=== PATIENT | male | born 1975 | race Caucasian/White ===

== ENCOUNTER 2017-03-27 18:00 | Emergency (ER) | payer OTHER ==
[~2017-03-27] VITALS: Ht 167.6 cm; Wt 104.3 kg
[~2017-03-27 18:00] MED LIST: CIPR500T94 PO; CLOP75TA27 PO; HYDR-971 PO; SIMV10TA3 PO; TIZA4TAB PO
[2017-03-27 18:05] VITALS: BP 137/77
--- NOTE | 2017-03-27 18:32 | PHYS DOC ---
Past Medical History Past Medical History: CVA, High Cholesterol Additional Past Medical Histor: CVA 2008 Past Surgical History: Other Additional Past Surgical Histo: Hernia Alcohol Use: None Drug Use: None Adult General Chief Complaint Chief Complaint: EYE PROBLEMS HPI HPI Patient is a 41 year old male presents to the emergency department stating that he was seen by his primary care physician on was placed on doxycycline for a left upper eyelid infection. Patient states that he had some swelling down into the maxillary sinus area. Patient states he was told by his primary care physician if he was not feeling better on Wednesday that he needed to go the emergency department and be seen. Patient states when he woke up this morning he continued have increased pain along the left maxillary sinus area. He states he's also developed pain behind the left ear. He denies any fever, chills. He does state that he sounds a little sensitivity to light with the left eye. He denies any change in his hearing. Patient is alert and oriented. Shunt denies any nasal drainage or discharge. Review of Systems Review of Systems Constitutional: Denies fever or chills [] Eyes: Denies change in visual acuity, redness, or eye pain [] HENT: Denies nasal congestion or sore throat. C/o left maxillary sinus pain with pain behind the left ear Respiratory: Denies cough or shortness of breath [] Cardiovascular: No additional information not addressed in HPI [] GI: Denies abdominal pain, nausea, vomiting, bloody stools or diarrhea [] : Denies dysuria or hematuria [] Musculoskeletal: Denies back pain or joint pain [] Integument: Denies rash or skin lesions [] Neurologic: Denies headache, focal weakness or sensory changes [] Endocrine: Denies polyuria or polydipsia [] Allergies Allergies Allergies Coded Allergies Type Severity Reaction Last Updated Verified Penicillins Allergy Intermediate Rash 05/21/16 No Physical Exam Physical Exam Constitutional: Well developed, well nourished, no acute distress, non-toxic appearance. [] HENT: Normocephalic, atraumatic, bilateral external ears normal, oropharynx moist, no oral exudates, nose normal. Bilateral TM normal. Patient with left maxillary sinus tenderness, tenderness behind the left ear. Eyes: PERRLA, EOMI, conjunctiva normal, no discharge. Left upper eye lid appear slightly red along the eye lashes, no swelling noted Neck: Normal range of motion, no tenderness, supple, no stridor. [] Cardiovascular:Heart rate regular rhythm, no murmur [] Lungs & Thorax: Bilateral breath sounds clear to auscultation [] Skin: Warm, dry, no erythema, no rash. [] Back: No tenderness Extremities: No tenderness, no cyanosis, no clubbing, ROM intact, no edema. [] Neurologic: Alert and oriented X 3, normal motor function, normal sensory function, no focal deficits noted. [] Psychologic: Affect normal, judgement normal, mood normal. [] Current Patient Data Vital Signs Vital Signs Date Time Temp Pulse Resp B/P (MAP) Pulse Ox O2 Delivery O2 Flow Rate FiO2 03/27/17 18:05 97.9 78 16 98 Room Air 97.9 EKG EKG [] Radiology/Procedures Radiology/Procedures [][facility] [address] [place] [address] IMAGING REPORT Signed PATIENT: BRENDAN ESQUEDA ACCOUNT: [id number] : 1975 LOCATION: ER AGE: 41 SEX: M EXAM STATUS: REG ER ORD. PHYSICIAN: PHIL CHOI APRN REASON: left maxillary sinus pain with pain behind left ear. PROCEDURE: CT MAXILLOFACIAL WO CONTRAST CT MAXILLOFACIAL WO CONTRAST dated 03/27/2017 6:23 PM Indication: left sided sinus pain and pain behind left ear x several days, no priors Comparison: No comparison is available. Technique: CT imaging was performed of the[maxillofacial region], multiplanar reconstruction images submitted. One or more of the following individualized dose reduction techniques were utilized for this examination: 1. Automated exposure control 2. Adjustment of the mA and/or kV according to patient size 3. Use of iterative reconstruction technique Findings: Paranasal sinuses are overall aerated, no air-fluid levels or significant mucosal thickening. Mastoid air cells are aerated. There is mild facet degenerative change visualized of the visualized superior cervical spine. There are several nonspecific nodes in the visualized bilateral neck although not considered significantly enlarged biaxillary imaging criteria, largest right level 2 node up to 1 cm short axis dimension. Brain is poorly evaluated. However there is a large area of likely encephalomalacia centered in the left insula, ex vacuo dilatation of the left lateral ventricle. IMPRESSION: 1. Paranasal sinuses are aerated, no air-fluid levels. 2. Brain is poorly evaluated. However there is a large area of likely encephalomalacia probably from previous infarct centered in the left insula, ex vacuo dilatation of the left lateral ventricle. Electronically signed by: Ayde Razo MD (03/27/2017 6:40 PM) DICTATED and SIGNED BY: AYDE RAZO MD DATE: 03/27/17 1835 CC: PHIL CHOI APRN; ANA REIS MD ~ Course & Med Decision Making Course & Med Decision Making Pertinent Labs and Imaging studies reviewed. (See chart for details) CT scan was negative for any acute findings. Patient will continue with doxycycline and we'll recommend Tylenol or ibuprofen for pain and discomfort. Patient will be discharged home in stable condition since symptoms to return back to emergency department provided. [] Dragon Disclaimer Dragon Disclaimer This electronic medical record was generated, in whole or in part, using a voice recognition dictation system. Departure Departure Impression: Primary Impression: Maxillary pain Additional Impression: Head pain Referrals: ANA REIS MD (PCP) Patient Instructions: Sinusitis Additional Instructions: Your CT scan was negative for any acute findings. Continue your antibiotic as prescribed. Tylenol or ibuprofen for pain and discomfort. Sleep with your head elevated to help with any swelling that you feel that your having. Follow-up to primary care physician on Wednesday. Return back to emergency department signs and symptoms of become worse. Problem Qualifiers PHIL CHOI APRN March 27, 2017 18:32
--- NOTE | 2017-03-27 18:43 | RAD ---
CT MAXILLOFACIAL WO CONTRAST dated 03/27/2017 6:23 PM Indication: left sided sinus pain and pain behind left ear x several days, no priors Comparison: No comparison is available. Technique: CT imaging was performed of the[maxillofacial region], multiplanar reconstruction images submitted. One or more of the following individualized dose reduction techniques were utilized for this examination: 1. Automated exposure control 2. Adjustment of the mA and/or kV according to patient size 3. Use of iterative reconstruction technique Findings: Paranasal sinuses are overall aerated, no air-fluid levels or significant mucosal thickening. Mastoid air cells are aerated. There is mild facet degenerative change visualized of the visualized superior cervical spine. There are several nonspecific nodes in the visualized bilateral neck although not considered significantly enlarged biaxillary imaging criteria, largest right level 2 node up to 1 cm short axis dimension. Brain is poorly evaluated. However there is a large area of likely encephalomalacia centered in the left insula, ex vacuo dilatation of the left lateral ventricle. IMPRESSION: 1. Paranasal sinuses are aerated, no air-fluid levels. 2. Brain is poorly evaluated. However there is a large area of likely encephalomalacia probably from previous infarct centered in the left insula, ex vacuo dilatation of the left lateral ventricle. Electronically signed by: Russell Davis MD (03/27/2017 6:40 PM)
== END 2017-03-27 19:13 | disposition home or self-care (01) ==
LOC: ER 18:00
DX: R68.84 Jaw pain (principal); R51 Headache; E78.00 Pure hypercholesterolemia, unspecified; Z86.73 Personal history of transient ischemic attack (TIA), and cerebral infarction without residual deficits; Z88.0 Allergy status to penicillin
CPT/HCPCS: 70486; 99284-25

== ENCOUNTER 2017-04-14 16:50 | Observation (INO) | payer OTHER ==
[~2017-04-14] VITALS: Ht 170.2 cm; Wt 104.8 kg
[~2017-04-14 16:50] MED LIST changes: -CLOP75TA27 PO; +CLOP75TA57 PO
--- NOTE | 2017-04-14 17:33 | RAD ---
CT head without intravenous contrast History: Right-sided numbness and weakness, CVA, code stroke. Comparison: CT head December 27, 2008. Technique: Noncontrast CT of the head was performed from the skull base through the vertex with 5 mm collimation. Exposure: One or more of the following individualized dose reduction techniques were utilized for this examination: 1. Automated exposure control 2. Adjustment of the mA and/or kV according to patient size 3. Use of iterative reconstruction technique Findings: There is mild enlargement of the left lateral ventricle secondary to the volume loss of the previous left insular and left frontal stroke. The ventricles are appropriate in size, shape, and location for the patient's age. No obvious intracranial mass, mass-effect, midline shift, hemorrhage or obvious acute infarction is identified. Basilar cisterns are patent. Bone windows demonstrate no acute calvarial abnormality. The visualized paranasal sinuses appear clear. Impression: 1. No acute intracranial process. Please note that CT can be relatively insensitive to acute ischemic infarction for up to 24 hours after symptom onset. 2. Small-moderate old left insular and frontal stroke. 3. Results discussed with emergency department staff, Dr. Harris, at 1730 hours. Electronically signed by: Wade Valdez MD (04/14/2017 5:30 PM)
[2017-04-14 17:50] LABS: BASO % 1 % (0-3); EOS % 0 % (0-3); HEMATOCRIT 43.8 % (39.0-53.0); HEMOGLOBIN 14.9 g/dL (13.0-17.5); LYMPH # 0.5 x10^3/uL (1.0-4.8); LYMPH % 8 % (24-48); MEAN CORPUSCULAR HEMOGLOBIN 33 pg (25-35); MEAN CORPUSCULAR HGB CONC 34 g/dL (31-37); MEAN CORPUSCULAR VOLUME 96 fL (79-100); MONO % 1 % (0-9); NEUT % 91 % (31-73); PLATELET COUNT 180 x10^3/uL (140-400); RED BLOOD COUNT 4.58 x10^6/uL (4.30-5.70); RED CELL DISTRIBUTION WIDTH 13.8 % (11.5-14.5); WHITE BLOOD COUNT 6.8 x10^3/uL (4.0-11.0)
[2017-04-14 17:59] LABS: INR 1.1 (0.8-1.1); PROTHROMBIN TIME PATIENT 13.6 SEC (11.7-14.0)
[2017-04-14] MEDS ORDERED: fentaNYL PF VIAL 100 MCG/2 ML VIAL IV ONE (18:00)
[2017-04-14] MEDS ORDERED: METOCLOPRAMIDE HCL 10 MG/2 ML VIAL. IV ONE (18:00)
[2017-04-14] MEDS ORDERED: ASPIRIN CHEWABLE 81 MG TABLET. PO ONE (18:00)
[2017-04-14 18:05] LABS: CREATININE 1.1 mg/dL (0.7-1.3); GFR 73.4; POTASSIUM 4.2 mmol/L (3.5-5.1)
[2017-04-14 18:09] LABS: PLT ESTIMATE ADEQUATE (ADEQUATE)
[2017-04-14 18:11] LABS: ALBUMIN 3.7 g/dL (3.4-5.0); TOTAL BILIRUBIN 0.2 mg/dL (0.2-1.0); TOTAL PROTEIN 7.4 g/dL (6.4-8.2)
[2017-04-14] MEDS ORDERED: IOHEXOL 300 MG/ML 75 ML VIAL IV ONE (18:30)
[2017-04-14] MEDS ORDERED: CONTRAST GIVEN MC PRN (18:30)
[2017-04-14] MEDS ORDERED: CETI10TA16 PO (18:31)
[2017-04-14] MEDS ORDERED: SIMV40TA3 PO (18:31)
[2017-04-14] MEDS ORDERED: LEVO500T8 PO (18:31)
[2017-04-14] MEDS ORDERED: PRED20TA PO (18:31)
--- NOTE | 2017-04-14 18:54 | RAD ---
MRI Brain without IV contrast. History: Evaluate for CVA. Severe left-sided headache and right-sided weakness for one day. History of old stroke. Comparison: CT head earlier 04/14/2017. Technique: Routine multiplanar multisequence MRI of the brain was performed without intravenous administration. Findings: There is mild enlargement of the left lateral ventricle secondary to the volume loss of the previous left insular and left frontal stroke. The ventricles are appropriate in size, shape, and location for the patient's age. No intracranial mass, mass-effect, midline shift, hemorrhage or acute ischemic infarction is identified. Basilar cisterns are patent. Major intracranial vascular flow voids appear intact. Visualized paranasal sinuses appear clear. Impression: 1. No acute intracranial process. 2. Old left insular and frontal infarction. Electronically signed by: Wade Valdez MD (04/14/2017 6:50 PM)
--- NOTE | 2017-04-14 19:05 | ED.ADGEN ---
Past Medical History Past Medical History: CVA, High Cholesterol Additional Past Medical Histor: CVA 2009 Past Surgical History: Other Additional Past Surgical Histo: Hernia Alcohol Use: Rarely Drug Use: None Adult General Chief Complaint Chief Complaint: NEURO SYMPTOMS/DEFICITS HPI HPI Patient is a 41 year old male with remote CVA currently on Plavix who presents with intermittent headaches 2 weeks, left facial pain, and right facial numbness, right upper extremity weakness of breath onset wire prior to ED arrival. Patient denies acute headache. Denies blurred vision, change in vision , impaired speech, drooling, difficulty swallowing, lower extremity weakness and ataxia. She currently on antibiotics for a sinus infection started by PCP yesterday with medications. No other acute symptoms or complaints. Review of Systems Review of Systems ROS as per HPI. Current Medications Current Medications Current Medications Medications (Trade) Dose Ordered Sig/Temo Start Time Stop Time Status Last Admin Dose Admin Aspirin (Children'S Aspirin) 162 mg 1X ONCE 04/14/17 18:00 04/14/17 18:01 DC 04/14/17 18:02 162 MG Fentanyl Citrate (Fentanyl 2ml Vial) 50 mcg 1X ONCE 04/14/17 18:00 04/14/17 18:01 DC Info (Do NOT chart on this entry -- for MONITORING) 1 each PRN DAILY PRN 04/14/17 18:30 04/16/17 18:29 Iohexol (Omnipaque 300 Mg/ml) 75 ml 1X ONCE 04/14/17 18:30 04/14/17 18:31 DC 04/14/17 18:43 75 ML Metoclopramide HCl (Reglan) 10 mg 1X ONCE 04/14/17 18:00 04/14/17 18:01 DC Allergies Allergies Allergies Coded Allergies Type Severity Reaction Last Updated Verified Penicillins Allergy Intermediate Rash 05/21/16 No Physical Exam Physical Exam Constitutional: Well developed, well nourished, no acute distress, non-toxic appearance. HENT: Normocephalic, atraumatic, left maxillary pain/sinus TTP, bilateral external ears normal, oropharynx moist, no oral exudates, nose normal. Eyes: PERRLA, EOMI, conjunctiva normal, no discharge. Neck: Normal range of motion, no tenderness. Cardiovascular:Heart rate regular rhythm, no murmur. Lungs & Thorax: Bilateral breath sounds clear to auscultation. Abdomen: Bowel sounds normal, soft, no tenderness. Skin: Warm. Extremities: No tenderness, no cyanosis, no clubbing, ROM intact, no edema. Neurologic: Alert and oriented X 3, right facial, partial numbness, radial nerves II through. Otherwise intact, normal motor function, normal sensory function, no focal deficits noted. NIH stroke score of 1. Psychologic: Affect normal, judgement normal, mood normal. Current Patient Data Vital Signs Vital Signs Date Time Temp Pulse Resp B/P (MAP) Pulse Ox O2 Delivery O2 Flow Rate FiO2 04/14/17 17:56 66 24 122/79 (93) 95 Room Air 04/14/17 17:10 98.1 98.1 Lab Values Laboratory Tests Test 04/14/17 17:15 04/14/17 17:39 Glucose (Fingerstick) 127 mg/dL (70-99) H White Blood Count 6.8 x10^3/uL (4.0-11.0) Red Blood Count 4.58 x10^6/uL (4.30-5.70) Hemoglobin 14.9 g/dL (13.0-17.5) Hematocrit 43.8 % (39.0-53.0) Mean Corpuscular Volume 96 fL (79-100) Mean Corpuscular Hemoglobin 33 pg (25-35) Mean Corpuscular Hemoglobin Concent 34 g/dL (31-37) Red Cell Distribution Width 13.8 % (11.5-14.5) Platelet Count 180 x10^3/uL (140-400) Neutrophils (%) (Auto) 91 % (31-73) H Lymphocytes (%) (Auto) 8 % (24-48) L Monocytes (%) (Auto) 1 % (0-9) Eosinophils (%) (Auto) 0 % (0-3) Basophils (%) (Auto) 1 % (0-3) Neutrophils # (Auto) 6.2 x10^3uL (1.8-7.7) Lymphocytes # (Auto) 0.5 x10^3/uL (1.0-4.8) L Monocytes # (Auto) 0.0 x10^3/uL (0.0-1.1) Eosinophils # (Auto) 0.0 x10^3/uL (0.0-0.7) Basophils # (Auto) 0.0 x10^3/uL (0.0-0.2) Segmented Neutrophils % 91 % (35-66) H Lymphocytes % 9 % (24-48) L Platelet Estimate Adequate (ADEQUATE) Prothrombin Time 13.6 SEC (11.7-14.0) Prothrombin Time INR 1.1 (0.8-1.1) PTT 29 SEC (24-38) Sodium Level 137 mmol/L (136-145) Potassium Level 4.2 mmol/L (3.5-5.1) Chloride Level 103 mmol/L (98-107) Carbon Dioxide Level 30 mmol/L (21-32) Anion Gap 4 (6-14) L Blood Urea Nitrogen 13 mg/dL (8-26) Creatinine 1.1 mg/dL (0.7-1.3) Estimated GFR (Cockcroft-Gault) 73.4 BUN/Creatinine Ratio 12 (6-20) Glucose Level 132 mg/dL (70-99) H Calcium Level 9.0 mg/dL (8.5-10.1) Total Bilirubin 0.2 mg/dL (0.2-1.0) Aspartate Amino Transferase (AST) 21 U/L (15-37) Alanine Aminotransferase (ALT) 27 U/L (16-63) Alkaline Phosphatase 71 U/L (46-116) Total Protein 7.4 g/dL (6.4-8.2) Albumin 3.7 g/dL (3.4-5.0) Albumin/Globulin Ratio 1.0 (1.0-1.7) Laboratory Tests 04/14/17 17:39 Laboratory Tests 04/14/17 17:39 EKG EKG [EKG:] Radiology/Procedures Radiology/Procedures [CT head: No acute intracranial process per radiology report. MRI brain: No acute intracranial process per radiology report. CTA head/neck: NAD per radiology report] Course & Med Decision Making Course & Med Decision Making Pertinent Labs and Imaging studies reviewed. (See chart for details) [Patient with NIH stroke score of 1. Initial symptoms, gradually improved. CT head nonacute, CT angiogram of head and neck, MRI brain nonacute. Evidence of old infarct present. Patient currently on Plavix it is compliant with treatment. Aspirin given. Dr. Collins and Dr. Lane to [facility]. ] Dragon Disclaimer Dragon Disclaimer This electronic medical record was generated, in whole or in part, using a voice recognition dictation system. VONNIE MATA DO Apr 14, 2017 19:05
--- NOTE | 2017-04-14 19:28 | RAD ---
PQRS Compliance Statement: One or more of the following individualized dose reduction techniques were utilized for this examination: 1. Automated exposure control 2. Adjustment of the mA and/or kV according to patient size 3. Use of iterative reconstruction technique CT ANGIOGRAM HEAD AND NECK Clinical Indication: Right-sided numbness. History of CVA 9 years ago. Technique: Axial CT imaging of the head without contrast was initially performed. Axial CT imaging of the head and neck was obtained after administration of 75 cc Omnipaque 300 intravenous contrast. 3-D MIP reconstructions of the cervical carotid arteries in [place] were performed. PQRS Compliance Statement - Stenosis calculations for CT, MR and conventional angiography are based upon measurement of the distal ICA diameter in accordance with the NASCET methodology. Stenosis calculations for carotid ultrasound studies are derived from validated velocity criteria which are known to correlate with the NASCET methodology. Comparison: MR brain without contrast, same day. Findings: Old left insular infarct redemonstrated. No abnormal enhancement in the brain parenchyma. No midline shift or mass effect. [place]-white matter differentiation is preserved. Ventricles and sulci are normal. No extra-axial fluid collection. Aortic arch branches are patent. Common and internal carotid arteries are patent. The vertebral arteries are patent. Basilar artery and posterior circulation is intact. Distal internal carotid arteries are patent. Anterior circulation is intact. No focal stenosis or abrupt truncation is identified of the intracranial arteries. There is no evidence of intracranial aneurysm. Visualized upper lungs clear. There are bilateral subcentimeter cervical lymph nodes. No adenopathy. The thyroid, submandibular, and parotid glands are symmetric. The parapharyngeal fat planes are preserved. Cervical spine alignment is maintained. IMPRESSION: 1. Normal CTA head and neck. 2. Old left insular infarct. Electronically signed by: Gregorio Laurent MD (04/14/2017 7:25 PM)
[2017-04-14] MEDS ORDERED: ONDANSETRON PF 4 MG/2 ML VIAL. IV PRN ×2 (20:30→21:44)
[2017-04-14 20:36] LABS: BARBITURATES NEG (NEG); BENZODIAZEPINES NEG (NEG); CANNABINOIDS NEG (NEG); COCAINE NEG (NEG); METHADONE NEG (NEG); OPIATES NEG (NEG); PHENCYCLIDINE NEG (NEG)
[2017-04-14 21:15] VITALS: BP 128/83
[2017-04-14] MEDS ORDERED: NICOTINE 21MG PATCH. TD PRN (21:45)
[2017-04-14] MEDS ORDERED: ACETAMINOPHEN 500 MG TABLET PO PRN (21:45)
[2017-04-14] MEDS ORDERED: HYDROcodone/APAP 5/325MG 1 TAB TABLET PO PRN (21:45)
--- NOTE | 2017-04-14 21:57 | PDOC1 ---
History and Physical Date of Admission Date of Admission DATE: 04/14/17 TIME: 21:46 Identification/Chief Complaint Chief Complaint R sided weakness and feeling of drooling Problems: Source Source: Caregiver, Chart review, Patient History of Present Illness History of Present Illness 41 y.o pleasant male, PCP dr. Coronado, acute onset today of decreased sensation on RUE > RLE, R facial weakness - sensation that saliva coming down corner of his mouth (there is none), some headaches. Hx of old stroke 2005 ( could not lift his R side to light his cigarette, weakness), was on warfarin that time then transitioned to aggrenox and with change of his insurance, needed to downgrade to plavix which since then he has been taking regularly. ALso on simvastatin 40. HEadaches was initially severe 08/10, POA, hx of small mild headaches, chronic. NOw headache seems to be better but he is concerned. Also has some levaquin and prednisone recently given, for some sinus infection. The R sided weakness seems to be better, NIHS scale at ER 1, Neuro exam is non focal, but he still has that sensation of "drooling" R side. CT head, MRI and CTA all done at ER level neg for acute stroke, but did show the old stroke, NEuro aware of admission,advised admit and freq neuro checks, BP and rest of VS is good. 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 SMoker, non etoh drinker. His first stroke was at age 36 Past Medical History Cardiovascular: No pertinent hx, Hyperlipidemia Pulmonary: Bronchitis CENTRAL NERVOUS SYSTEM: CVA GI: No pertinent hx Heme/Onc: No pertinent hx Hepatobiliary: No pertinent hx Psych: No pertinent hx Rheumatologic: No pertinent hx Infectious disease: No pertinent hx ENT: No pertinent hx Renal/: No pertinent hx Endocrine: No pertinent hx Dermatology: No pertinent hx Past Surgical History Past Surgical History: No pertinent history Family History Family History: Hypertension Social History Smoke: <1 pack per day ALCOHOL: none Drugs: None Current Problem List Problem List Problems Medical Problems: (1) Left facial numbness Status: Acute Problems: Current Medications Current Medications Current Medications Aspirin (Children'S Aspirin) 162 mg 1X ONCE PO Last administered on 04/14/17t 18:02; Start 04/14/17 at 18:00; Stop 04/14/17 at 18:01; Status DC Metoclopramide HCl (Reglan) 10 mg 1X ONCE IV ; Start 04/14/17 at 18:00; Stop at 18:01; Status DC Fentanyl Citrate (Fentanyl 2ml Vial) 50 mcg 1X ONCE IV ; Start 04/14/17 at 18: 00; Stop 04/14/17 at 18:01; Status DC Iohexol (Omnipaque 300 Mg/ml) 75 ml 1X ONCE IV Last administered on 04/14/17t 18:43; Start 04/14/17 at 18:30; Stop 04/14/17 at 18:31; Status DC Info (Do NOT chart on this entry -- for MONITORING) 1 each PRN DAILY PRN MC SEE COMMENTS; Start 04/14/17 at 18:30; Stop 04/16/17 at 18:29 Ondansetron HCl (Zofran) 4 mg PRN Q8HRS PRN IV NAUSEA/VOMITING; Start 04/14/17 at 20:30; Stop 04/15/17 at 20:29 Active Scripts Active [place] 5-325 Tablet (Acetaminophen/Hydrocodone Bitart) 1 Each Tablet 1 Tab PO PRN Q6HRS PRN Cipro (Ciprofloxacin Hcl) 500 Mg Tablet 1 Tab PO BID PRN Reported Cetirizine Hcl 10 Mg Tablet 1 Tab PO DAILY Simvastatin 40 Mg Tablet 1 Tab PO QHS Prednisone 20 Mg Tablet 1 Tab PO DAILY Levofloxacin 500 Mg Tablet 1 Tab PO DAILY Tizanidine Hcl 4 Mg Tablet 1 Tab PO BID Plavix (Clopidogrel Bisulfate) 75 Mg Tablet 1 Tab PO DAILY Allergies Allergies: Coded Allergies: Penicillins (Unverified Allergy, Intermediate, Rash, 05/21/16) ROS Review of System as per HPI, all else 14 pt reviewed, neg Physical Exam General: Alert, Oriented X3, Cooperative, No acute distress HEENT: Atraumatic, PERRLA, EOMI Lungs: Clear to auscultation, Normal air movement Heart: S1S2, RRR, no thrills, no rubs, no gallops, no murmurs Cardiovascular: S1, S2 Abdomen: Normal bowel sounds, Soft, No tenderness, No hepatosplenomegaly, No masses Male Genitals Exam: normal genitalia, normal prostate Rectal Exam: not examined Extremities: No clubbing, No cyanosis, No edema, Normal pulses, No tenderness/ swelling Skin: No rashes, No breakdown, No significant lesion Neuro: Normal gait, Normal speech, Strength at 5/5 X4 ext, Normal tone, Sensation intact, Cranial nerves 3-12 NL, Reflexes 2+ Vitals Vitals Vital Signs Date Time Temp Pulse Resp B/P (MAP) Pulse Ox O2 Delivery O2 Flow Rate FiO2 04/14/17 21:15 97.8 65 18 128/83 (98) 99 Room Air 97.8 Labs Labs Laboratory Tests Test 04/14/17 17:15 04/14/17 17:39 04/14/17 17:50 Glucose (Fingerstick) 127 mg/dL (70-99) White Blood Count 6.8 x10^3/uL (4.0-11.0) Red Blood Count 4.58 x10^6/uL (4.30-5.70) Hemoglobin 14.9 g/dL (13.0-17.5) Hematocrit 43.8 % (39.0-53.0) Mean Corpuscular Volume 96 fL (79-100) Mean Corpuscular Hemoglobin 33 pg (25-35) Mean Corpuscular Hemoglobin Concent 34 g/dL (31-37) Red Cell Distribution Width 13.8 % (11.5-14.5) Platelet Count 180 x10^3/uL (140-400) Neutrophils (%) (Auto) 91 % (31-73) Lymphocytes (%) (Auto) 8 % (24-48) Monocytes (%) (Auto) 1 % (0-9) Eosinophils (%) (Auto) 0 % (0-3) Basophils (%) (Auto) 1 % (0-3) Neutrophils # (Auto) 6.2 x10^3uL (1.8-7.7) Lymphocytes # (Auto) 0.5 x10^3/uL (1.0-4.8) Monocytes # (Auto) 0.0 x10^3/uL (0.0-1.1) Eosinophils # (Auto) 0.0 x10^3/uL (0.0-0.7) Basophils # (Auto) 0.0 x10^3/uL (0.0-0.2) Segmented Neutrophils % 91 % (35-66) Lymphocytes % 9 % (24-48) Platelet Estimate Adequate (ADEQUATE) Prothrombin Time 13.6 SEC (11.7-14.0) Prothromb Time International Ratio 1.1 (0.8-1.1) Activated Partial Thromboplast Time 29 SEC (24-38) Sodium Level 137 mmol/L (136-145) Potassium Level 4.2 mmol/L (3.5-5.1) Chloride Level 103 mmol/L (98-107) Carbon Dioxide Level 30 mmol/L (21-32) Anion Gap 4 (6-14) Blood Urea Nitrogen 13 mg/dL (8-26) Creatinine 1.1 mg/dL (0.7-1.3) Estimated GFR (Cockcroft-Gault) 73.4 BUN/Creatinine Ratio 12 (6-20) Glucose Level 132 mg/dL (70-99) Calcium Level 9.0 mg/dL (8.5-10.1) Total Bilirubin 0.2 mg/dL (0.2-1.0) Aspartate Amino Transf (AST/SGOT) 21 U/L (15-37) Alanine Aminotransferase (ALT/SGPT) 27 U/L (16-63) Alkaline Phosphatase 71 U/L (46-116) Total Protein 7.4 g/dL (6.4-8.2) Albumin 3.7 g/dL (3.4-5.0) Albumin/Globulin Ratio 1.0 (1.0-1.7) Urine Opiates Screen Neg (NEG) Urine Methadone Screen Neg (NEG) Urine Barbiturates Neg (NEG) Urine Phencyclidine Screen Neg (NEG) Urine Amphetamine/Methamphetamine Neg (NEG) Urine Benzodiazepines Screen Neg (NEG) Urine Cocaine Screen Neg (NEG) Urine Cannabinoids Screen Neg (NEG) Urine Ethyl Alcohol Neg (NEG) Laboratory Tests Test 04/14/17 17:15 04/14/17 17:39 04/14/17 17:50 Glucose (Fingerstick) 127 mg/dL (70-99) White Blood Count 6.8 x10^3/uL (4.0-11.0) Red Blood Count 4.58 x10^6/uL (4.30-5.70) Hemoglobin 14.9 g/dL (13.0-17.5) Hematocrit 43.8 % (39.0-53.0) Mean Corpuscular Volume 96 fL (79-100) Mean Corpuscular Hemoglobin 33 pg (25-35) Mean Corpuscular Hemoglobin Concent 34 g/dL (31-37) Red Cell Distribution Width 13.8 % (11.5-14.5) Platelet Count 180 x10^3/uL (140-400) Neutrophils (%) (Auto) 91 % (31-73) Lymphocytes (%) (Auto) 8 % (24-48) Monocytes (%) (Auto) 1 % (0-9) Eosinophils (%) (Auto) 0 % (0-3) Basophils (%) (Auto) 1 % (0-3) Neutrophils # (Auto) 6.2 x10^3uL (1.8-7.7) Lymphocytes # (Auto) 0.5 x10^3/uL (1.0-4.8) Monocytes # (Auto) 0.0 x10^3/uL (0.0-1.1) Eosinophils # (Auto) 0.0 x10^3/uL (0.0-0.7) Basophils # (Auto) 0.0 x10^3/uL (0.0-0.2) Segmented Neutrophils % 91 % (35-66) Lymphocytes % 9 % (24-48) Platelet Estimate Adequate (ADEQUATE) Prothrombin Time 13.6 SEC (11.7-14.0) Prothromb Time International Ratio 1.1 (0.8-1.1) Activated Partial Thromboplast Time 29 SEC (24-38) Sodium Level 137 mmol/L (136-145) Potassium Level 4.2 mmol/L (3.5-5.1) Chloride Level 103 mmol/L (98-107) Carbon Dioxide Level 30 mmol/L (21-32) Anion Gap 4 (6-14) Blood Urea Nitrogen 13 mg/dL (8-26) Creatinine 1.1 mg/dL (0.7-1.3) Estimated GFR (Cockcroft-Gault) 73.4 BUN/Creatinine Ratio 12 (6-20) Glucose Level 132 mg/dL (70-99) Calcium Level 9.0 mg/dL (8.5-10.1) Total Bilirubin 0.2 mg/dL (0.2-1.0) Aspartate Amino Transf (AST/SGOT) 21 U/L (15-37) Alanine Aminotransferase (ALT/SGPT) 27 U/L (16-63) Alkaline Phosphatase 71 U/L (46-116) Total Protein 7.4 g/dL (6.4-8.2) Albumin 3.7 g/dL (3.4-5.0) Albumin/Globulin Ratio 1.0 (1.0-1.7) Urine Opiates Screen Neg (NEG) Urine Methadone Screen Neg (NEG) Urine Barbiturates Neg (NEG) Urine Phencyclidine Screen Neg (NEG) Urine Amphetamine/Methamphetamine Neg (NEG) Urine Benzodiazepines Screen Neg (NEG) Urine Cocaine Screen Neg (NEG) Urine Cannabinoids Screen Neg (NEG) Urine Ethyl Alcohol Neg (NEG) VTE Prophylaxis Ordered VTE Prophylaxis Devices: Yes VTE Pharmacological Prophylaxi: Yes Assessment/Plan Assessment/Plan 1. Stroke like sxs RUE weakness> RLE, R facial numbness 2. HEadaches, POA, better 3. HX CVA in the young now on plavix 4. SMoker 5. Dyslipidemia on statin 6. Sinus infection PLAn: Admit 6th floor NEuro consult Cont plavix and sinus meds (pred and levaquin) Cont statin Freq neuro checks PT/OT Nicotine patch prn seen at ER 15 MADDISON TOUSSAINT MD Apr 14, 2017 21:57
[2017-04-14 23:13] VITALS: BP 139/82
[2017-04-15 02:57] VITALS: BP 103/65
[2017-04-15 05:52] LABS: BASO % 1 % (0-3); EOS % 1 % (0-3); HEMATOCRIT 42.5 % (39.0-53.0); HEMOGLOBIN 14.9 g/dL (13.0-17.5); LYMPH # 2.1 x10^3/uL (1.0-4.8); LYMPH % 28 % (24-48); MEAN CORPUSCULAR HEMOGLOBIN 33 pg (25-35); MEAN CORPUSCULAR HGB CONC 35 g/dL (31-37); MEAN CORPUSCULAR VOLUME 94 fL (79-100); MONO % 7 % (0-9); NEUT % 64 % (31-73); PLATELET COUNT 171 x10^3/uL (140-400); RED BLOOD COUNT 4.54 x10^6/uL (4.30-5.70); WHITE BLOOD COUNT 7.5 x10^3/uL (4.0-11.0)
[2017-04-15 06:07] LABS: CALCIUM 8.7 mg/dL (8.5-10.1); GFR 81.9; POTASSIUM 3.9 mmol/L (3.5-5.1)
[2017-04-15 07:00] VITALS: BP 131/79
[2017-04-15 08:02] VITALS: BP 131/79
[2017-04-15] MEDS: tiZANidine 4 MG TABLET. PO SCH ×2 (09:00→09:30)
[2017-04-15] MEDS ORDERED: predniSONE 20 MG TABLET PO SCH (09:00)
[2017-04-15] MEDS ORDERED: CETIRIZINE HCL 10 MG TABLET. PO SCH (09:00)
[2017-04-15] MEDS ORDERED: CLOPIDOGREL BISULFATE 75 MG TABLET PO SCH (09:00)
--- NOTE | 2017-04-15 10:18 | EKG ---
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
[2017-04-15 10:54] VITALS: BP 129/87
--- NOTE | 2017-04-15 12:14 | PDOC2 ---
NEUROLOGY CONSULT Date of Admission Date of Admission DATE: 04/15/17 TIME: 12:03 Reason for Consult Reason for Consult: IMPRESSION: Right side face heaviness. Right UE weakness. Left side headache, migraine headache type. Old left frontal/insular infarct. Smoking. Obesity. No evidence of acute CVA or brain tumor this time. RECOMMENDATIONS/PLAN: Pain control. Continue Plavix daily. Continue Zocor 40 mg HS. Smoking cessation. FU with PCP. FU with Neurology as needed. HISTORY OF THE PRESENT ILLNESS: 41-y-old male patient with history of headaches had headaches this time in his left side of head with abnormal drooling like sensation in his right side of face and heaviness or weakness in his right side UE to come to the ER of [facility] on 04/14. His CT, CTA and MRI were all negative. He was thought to have migraine headache with hemiplegic features. His symptoms resolved several hours later after treating his headaches. PAST MEDICAL HISTORY: Please see above. PAST SURGERY HISTORY: No major surgery recently. ALLERGY: Reviewed. MEDICATIONS: Refer to [facility] FAMILY HISTORY: Non contributory. SOCIAL HISTORY: Lives at home. Denies illicit drug use. He smokes 1 pack of cigarettes a day for 16 years. He drinks alcohol occasionally. REVIEW OF SYSTEMS: Constitutional: Over weight. Head: No traumatic brain or head injury. Skin: No edema, or rash. Ear: No infection, tinnitus. Eyes: No vision loss or color blindness. Nose: No bleeding or purulent discharges. Hearing: No hearing decrease. Neck: No injury. Cardiac: No MS, arrhythmia. Pulmonary: No COPD. GI: No GI ulcer, GI bleeding. Urinary/genital: No dysuria, incontinence, urinary retention. Endocrinologic: Over weight.. Skeletomuscular: No muscular atrophy, deformity. Neurological: see HP. Psychiatric: Denies drug use/abuse. Otherwise, not [id number] review of systems. PHYSICAL EXAMINATION: General appearance is in no acute distress. HEENT: Normocephalic and nontraumatic. Eyes, nose, ears, and throat are unremarkable. Neck is supple. No lymphadenopathy. No bruits are heard over the carotid artery. No crepitus. Cardiovascular: S1, S2, regular rate and rhythm. Pulmonary: Clear to auscultation bilaterally. Abdomen: Bowel sounds are positive. Abdomen is soft, nontender, and nondistended. Extremities: No rash, lesions, or edema. No restriction of range of motion NEUROLOGICAL EXAMINATION: Alert Oriented to time, place and person. PERRL. EOMI. CN: no focal findings. Muscle tone: within normal. Muscle strength: 5 DTR: 2 Plantar reflex: Flexor response bilaterally Gait: not examined in bed. Sensory exam: no abnormal findings. No cerebellar signs elicited. F-T-N test accurate. Current Medications Current Medications Current Medications Aspirin (Children'S Aspirin) 162 mg 1X ONCE PO Last administered on 04/14/17 18:02; Start 04/14/17 at 18:00; Stop 04/14/17 at 18:01; Status DC Metoclopramide HCl (Reglan) 10 mg 1X ONCE IV ; Start 04/14/17 at 18:00; Stop at 18:01; Status DC Fentanyl Citrate (Fentanyl 2ml Vial) 50 mcg 1X ONCE IV ; Start 04/14/17 at 18: 00; Stop 04/14/17 at 18:01; Status DC Iohexol (Omnipaque 300 Mg/ml) 75 ml 1X ONCE IV Last administered on 04/14/17 18:43; Start 04/14/17 at 18:30; Stop 04/14/17 at 18:31; Status DC Info (Do NOT chart on this entry -- for MONITORING) 1 each PRN DAILY PRN MC SEE COMMENTS; Start 04/14/17 at 18:30; Stop 04/16/17 at 18:29 Ondansetron HCl (Zofran) 4 mg PRN Q8HRS PRN IV NAUSEA/VOMITING; Start 04/14/17 at 20:30; Stop 04/14/17 at 21:46; Status DC Ondansetron HCl (Zofran) 4 mg PRN Q6HRS PRN IV NAUSEA/VOMITING; Start 04/14/17 at 21:44; Stop 04/15/17 at 21:43 Acetaminophen (Tylenol) 500 mg PRN Q6HRS PRN PO MILD PAIN / TEMP; Start at 21:45 Cetirizine HCl (ZyrTEC) 10 mg DAILY PO Last administered on 04/15/17 09:32; Start 04/15/17 at 09:00 Clopidogrel Bisulfate (Plavix) 75 mg DAILY PO Last administered on 04/15/17 09 :32; Start 04/15/17 at 09:00 Acetaminophen/ Hydrocodone Bitart ([place] 5/325) 1 tab PRN Q6HRS PRN PO PAIN; Start 04/14/17 at 21:45 Levofloxacin (Levaquin) 500 mg DAILY PO Last administered on 04/15/17 09:30; Start 04/15/17 at 09:00 Prednisone (Prednisone) 20 mg DAILY PO Last administered on 04/15/17 09:30; Start 04/15/17 at 09:00 Simvastatin (Zocor) 40 mg QHS PO ; Start 04/15/17 at 21:00 Tizanidine HCl (Zanaflex) 4 mg BID PO ; Start 04/15/17 at 09:00 Nicotine (Nicoderm Cq 21mg) 1 patch PRN DAILY PRN TD SMOKING CESSATION; Start 04/14/17 at 21:45 Active Scripts Active [place] 5-325 Tablet (Acetaminophen/Hydrocodone Bitart) 1 Each Tablet 1 Tab PO PRN Q6HRS PRN Cipro (Ciprofloxacin Hcl) 500 Mg Tablet 1 Tab PO BID PRN Reported Cetirizine Hcl 10 Mg Tablet 1 Tab PO DAILY Simvastatin 40 Mg Tablet 1 Tab PO QHS Prednisone 20 Mg Tablet 1 Tab PO DAILY Levofloxacin 500 Mg Tablet 1 Tab PO DAILY Tizanidine Hcl 4 Mg Tablet 1 Tab PO BID Plavix (Clopidogrel Bisulfate) 75 Mg Tablet 1 Tab PO DAILY Allergies Allergies: Coded Allergies: Penicillins (Verified Allergy, Intermediate, Rash, 04/15/17) Vitals VITALS Vital Signs Date Time Temp Pulse Resp B/P (MAP) Pulse Ox O2 Delivery O2 Flow Rate FiO2 04/15/17 10:54 97.7 75 13 129/87 (101) 97 Room Air 97.7 Labs Labs Laboratory Tests Test 04/14/17 17:15 04/14/17 17:39 04/14/17 17:50 04/15/17 05:15 Glucose (Fingerstick) 127 mg/dL (70-99) White Blood Count 6.8 x10^3/uL (4.0-11.0) 7.5 x10^3/uL (4.0-11.0) Red Blood Count 4.58 x10^6/uL (4.30-5.70) 4.54 x10^6/uL (4.30-5.70) Hemoglobin 14.9 g/dL (13.0-17.5) 14.9 g/dL (13.0-17.5) Hematocrit 43.8 % (39.0-53.0) 42.5 % (39.0-53.0) Mean Corpuscular Volume 96 fL (79-100) 94 fL (79-100) Mean Corpuscular Hemoglobin 33 pg (25-35) 33 pg (25-35) Mean Corpuscular Hemoglobin Concent 34 g/dL (31-37) 35 g/dL (31-37) Red Cell Distribution Width 13.8 % (11.5-14.5) 14.0 % (11.5-14.5) Platelet Count 180 x10^3/uL (140-400) 171 x10^3/uL (140-400) Neutrophils (%) (Auto) 91 % (31-73) 64 % (31-73) Lymphocytes (%) (Auto) 8 % (24-48) 28 % (24-48) Monocytes (%) (Auto) 1 % (0-9) 7 % (0-9) Eosinophils (%) (Auto) 0 % (0-3) 1 % (0-3) Basophils (%) (Auto) 1 % (0-3) 1 % (0-3) Neutrophils # (Auto) 6.2 x10^3uL (1.8-7.7) 4.8 x10^3uL (1.8-7.7) Lymphocytes # (Auto) 0.5 x10^3/uL (1.0-4.8) 2.1 x10^3/uL (1.0-4.8) Monocytes # (Auto) 0.0 x10^3/uL (0.0-1.1) 0.5 x10^3/uL (0.0-1.1) Eosinophils # (Auto) 0.0 x10^3/uL (0.0-0.7) 0.0 x10^3/uL (0.0-0.7) Basophils # (Auto) 0.0 x10^3/uL (0.0-0.2) 0.0 x10^3/uL (0.0-0.2) Segmented Neutrophils % 91 % (35-66) Lymphocytes % 9 % (24-48) Platelet Estimate Adequate (ADEQUATE) Prothrombin Time 13.6 SEC (11.7-14.0) Prothromb Time International Ratio 1.1 (0.8-1.1) Activated Partial Thromboplast Time 29 SEC (24-38) Sodium Level 137 mmol/L (136-145) 137 mmol/L (136-145) Potassium Level 4.2 mmol/L (3.5-5.1) 3.9 mmol/L (3.5-5.1) Chloride Level 103 mmol/L (98-107) 102 mmol/L (98-107) Carbon Dioxide Level 30 mmol/L (21-32) 27 mmol/L (21-32) Anion Gap 4 (6-14) 8 (6-14) Blood Urea Nitrogen 13 mg/dL (8-26) 14 mg/dL (8-26) Creatinine 1.1 mg/dL (0.7-1.3) 1.0 mg/dL (0.7-1.3) Estimated GFR (Cockcroft-Gault) 73.4 81.9 BUN/Creatinine Ratio 12 (6-20) Glucose Level 132 mg/dL (70-99) 103 mg/dL (70-99) Calcium Level 9.0 mg/dL (8.5-10.1) 8.7 mg/dL (8.5-10.1) Total Bilirubin 0.2 mg/dL (0.2-1.0) Aspartate Amino Transf (AST/SGOT) 21 U/L (15-37) Alanine Aminotransferase (ALT/SGPT) 27 U/L (16-63) Alkaline Phosphatase 71 U/L (46-116) Total Protein 7.4 g/dL (6.4-8.2) Albumin 3.7 g/dL (3.4-5.0) Albumin/Globulin Ratio 1.0 (1.0-1.7) Urine Opiates Screen Neg (NEG) Urine Methadone Screen Neg (NEG) Urine Barbiturates Neg (NEG) Urine Phencyclidine Screen Neg (NEG) Urine Amphetamine/Methamphetamine Neg (NEG) Urine Benzodiazepines Screen Neg (NEG) Urine Cocaine Screen Neg (NEG) Urine Cannabinoids Screen Neg (NEG) Urine Ethyl Alcohol Neg (NEG) Laboratory Tests Test 04/14/17 17:15 04/14/17 17:39 04/14/17 17:50 04/15/17 05:15 Glucose (Fingerstick) 127 mg/dL (70-99) White Blood Count 6.8 x10^3/uL (4.0-11.0) 7.5 x10^3/uL (4.0-11.0) Red Blood Count 4.58 x10^6/uL (4.30-5.70) 4.54 x10^6/uL (4.30-5.70) Hemoglobin 14.9 g/dL (13.0-17.5) 14.9 g/dL (13.0-17.5) Hematocrit 43.8 % (39.0-53.0) 42.5 % (39.0-53.0) Mean Corpuscular Volume 96 fL (79-100) 94 fL (79-100) Mean Corpuscular Hemoglobin 33 pg (25-35) 33 pg (25-35) Mean Corpuscular Hemoglobin Concent 34 g/dL (31-37) 35 g/dL (31-37) Red Cell Distribution Width 13.8 % (11.5-14.5) 14.0 % (11.5-14.5) Platelet Count 180 x10^3/uL (140-400) 171 x10^3/uL (140-400) Neutrophils (%) (Auto) 91 % (31-73) 64 % (31-73) Lymphocytes (%) (Auto) 8 % (24-48) 28 % (24-48) Monocytes (%) (Auto) 1 % (0-9) 7 % (0-9) Eosinophils (%) (Auto) 0 % (0-3) 1 % (0-3) Basophils (%) (Auto) 1 % (0-3) 1 % (0-3) Neutrophils # (Auto) 6.2 x10^3uL (1.8-7.7) 4.8 x10^3uL (1.8-7.7) Lymphocytes # (Auto) 0.5 x10^3/uL (1.0-4.8) 2.1 x10^3/uL (1.0-4.8) Monocytes # (Auto) 0.0 x10^3/uL (0.0-1.1) 0.5 x10^3/uL (0.0-1.1) Eosinophils # (Auto) 0.0 x10^3/uL (0.0-0.7) 0.0 x10^3/uL (0.0-0.7) Basophils # (Auto) 0.0 x10^3/uL (0.0-0.2) 0.0 x10^3/uL (0.0-0.2) Segmented Neutrophils % 91 % (35-66) Lymphocytes % 9 % (24-48) Platelet Estimate Adequate (ADEQUATE) Prothrombin Time 13.6 SEC (11.7-14.0) Prothromb Time International Ratio 1.1 (0.8-1.1) Activated Partial Thromboplast Time 29 SEC (24-38) Sodium Level 137 mmol/L (136-145) 137 mmol/L (136-145) Potassium Level 4.2 mmol/L (3.5-5.1) 3.9 mmol/L (3.5-5.1) Chloride Level 103 mmol/L (98-107) 102 mmol/L (98-107) Carbon Dioxide Level 30 mmol/L (21-32) 27 mmol/L (21-32) Anion Gap 4 (6-14) 8 (6-14) Blood Urea Nitrogen 13 mg/dL (8-26) 14 mg/dL (8-26) Creatinine 1.1 mg/dL (0.7-1.3) 1.0 mg/dL (0.7-1.3) Estimated GFR (Cockcroft-Gault) 73.4 81.9 BUN/Creatinine Ratio 12 (6-20) Glucose Level 132 mg/dL (70-99) 103 mg/dL (70-99) Calcium Level 9.0 mg/dL (8.5-10.1) 8.7 mg/dL (8.5-10.1) Total Bilirubin 0.2 mg/dL (0.2-1.0) Aspartate Amino Transf (AST/SGOT) 21 U/L (15-37) Alanine Aminotransferase (ALT/SGPT) 27 U/L (16-63) Alkaline Phosphatase 71 U/L (46-116) Total Protein 7.4 g/dL (6.4-8.2) Albumin 3.7 g/dL (3.4-5.0) Albumin/Globulin Ratio 1.0 (1.0-1.7) Urine Opiates Screen Neg (NEG) Urine Methadone Screen Neg (NEG) Urine Barbiturates Neg (NEG) Urine Phencyclidine Screen Neg (NEG) Urine Amphetamine/Methamphetamine Neg (NEG) Urine Benzodiazepines Screen Neg (NEG) Urine Cocaine Screen Neg (NEG) Urine Cannabinoids Screen Neg (NEG) Urine Ethyl Alcohol Neg (NEG) ЕЛЕНА TELLO MD Apr 15, 2017 12:13
--- NOTE | 2017-04-15 13:31 | PDOC3 ---
Discharge Summary Visit Information Date of Admission: Apr 14, 2017 Date of Discharge: Apr 15, 2017 Admitting Diagnosis: parathesia Final Diagnosis Assessment/Plan: 1. Stroke like sxs RUE weakness> RLE, R facial numbness 2. Headaches, POA, better 3. 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 tobacco abuse disorder 5. Dyslipidemia on statin 6. Sinus infection Problems Medical Problems: (1) Left facial numbness Status: Acute Brief Hospital Course Allergies Allergies Coded Allergies Type Severity Reaction Last Updated Verified Penicillins Allergy Intermediate Rash 04/15/17 Yes Vital Signs Vital Signs Date Time Temp Pulse Resp B/P (MAP) Pulse Ox O2 Delivery O2 Flow Rate FiO2 04/15/17 10:54 97.7 75 13 129/87 (101) 97 Room Air 97.7 Lab Results Laboratory Tests Test 04/14/17 17:15 04/14/17 17:39 04/14/17 17:50 04/15/17 05:15 Glucose (Fingerstick) 127 mg/dL (70-99) White Blood Count 6.8 x10^3/uL (4.0-11.0) 7.5 x10^3/uL (4.0-11.0) Red Blood Count 4.58 x10^6/uL (4.30-5.70) 4.54 x10^6/uL (4.30-5.70) Hemoglobin 14.9 g/dL (13.0-17.5) 14.9 g/dL (13.0-17.5) Hematocrit 43.8 % (39.0-53.0) 42.5 % (39.0-53.0) Mean Corpuscular Volume 96 fL (79-100) 94 fL (79-100) Mean Corpuscular Hemoglobin 33 pg (25-35) 33 pg (25-35) Mean Corpuscular Hemoglobin Concent 34 g/dL (31-37) 35 g/dL (31-37) Red Cell Distribution Width 13.8 % (11.5-14.5) 14.0 % (11.5-14.5) Platelet Count 180 x10^3/uL (140-400) 171 x10^3/uL (140-400) Neutrophils (%) (Auto) 91 % (31-73) 64 % (31-73) Lymphocytes (%) (Auto) 8 % (24-48) 28 % (24-48) Monocytes (%) (Auto) 1 % (0-9) 7 % (0-9) Eosinophils (%) (Auto) 0 % (0-3) 1 % (0-3) Basophils (%) (Auto) 1 % (0-3) 1 % (0-3) Neutrophils # (Auto) 6.2 x10^3uL (1.8-7.7) 4.8 x10^3uL (1.8-7.7) Lymphocytes # (Auto) 0.5 x10^3/uL (1.0-4.8) 2.1 x10^3/uL (1.0-4.8) Monocytes # (Auto) 0.0 x10^3/uL (0.0-1.1) 0.5 x10^3/uL (0.0-1.1) Eosinophils # (Auto) 0.0 x10^3/uL (0.0-0.7) 0.0 x10^3/uL (0.0-0.7) Basophils # (Auto) 0.0 x10^3/uL (0.0-0.2) 0.0 x10^3/uL (0.0-0.2) Segmented Neutrophils % 91 % (35-66) Lymphocytes % 9 % (24-48) Platelet Estimate Adequate (ADEQUATE) Prothrombin Time 13.6 SEC (11.7-14.0) Prothromb Time International Ratio 1.1 (0.8-1.1) Activated Partial Thromboplast Time 29 SEC (24-38) Sodium Level 137 mmol/L (136-145) 137 mmol/L (136-145) Potassium Level 4.2 mmol/L (3.5-5.1) 3.9 mmol/L (3.5-5.1) Chloride Level 103 mmol/L (98-107) 102 mmol/L (98-107) Carbon Dioxide Level 30 mmol/L (21-32) 27 mmol/L (21-32) Anion Gap 4 (6-14) 8 (6-14) Blood Urea Nitrogen 13 mg/dL (8-26) 14 mg/dL (8-26) Creatinine 1.1 mg/dL (0.7-1.3) 1.0 mg/dL (0.7-1.3) Estimated GFR (Cockcroft-Gault) 73.4 81.9 BUN/Creatinine Ratio 12 (6-20) Glucose Level 132 mg/dL (70-99) 103 mg/dL (70-99) Calcium Level 9.0 mg/dL (8.5-10.1) 8.7 mg/dL (8.5-10.1) Total Bilirubin 0.2 mg/dL (0.2-1.0) Aspartate Amino Transf (AST/SGOT) 21 U/L (15-37) Alanine Aminotransferase (ALT/SGPT) 27 U/L (16-63) Alkaline Phosphatase 71 U/L (46-116) Total Protein 7.4 g/dL (6.4-8.2) Albumin 3.7 g/dL (3.4-5.0) Albumin/Globulin Ratio 1.0 (1.0-1.7) Urine Opiates Screen Neg (NEG) Urine Methadone Screen Neg (NEG) Urine Barbiturates Neg (NEG) Urine Phencyclidine Screen Neg (NEG) Urine Amphetamine/Methamphetamine Neg (NEG) Urine Benzodiazepines Screen Neg (NEG) Urine Cocaine Screen Neg (NEG) Urine Cannabinoids Screen Neg (NEG) Urine Ethyl Alcohol Neg (NEG) Laboratory Tests Test 04/14/17 17:15 04/14/17 17:39 04/14/17 17:50 04/15/17 05:15 Glucose (Fingerstick) 127 mg/dL (70-99) White Blood Count 6.8 x10^3/uL (4.0-11.0) 7.5 x10^3/uL (4.0-11.0) Red Blood Count 4.58 x10^6/uL (4.30-5.70) 4.54 x10^6/uL (4.30-5.70) Hemoglobin 14.9 g/dL (13.0-17.5) 14.9 g/dL (13.0-17.5) Hematocrit 43.8 % (39.0-53.0) 42.5 % (39.0-53.0) Mean Corpuscular Volume 96 fL (79-100) 94 fL (79-100) Mean Corpuscular Hemoglobin 33 pg (25-35) 33 pg (25-35) Mean Corpuscular Hemoglobin Concent 34 g/dL (31-37) 35 g/dL (31-37) Red Cell Distribution Width 13.8 % (11.5-14.5) 14.0 % (11.5-14.5) Platelet Count 180 x10^3/uL (140-400) 171 x10^3/uL (140-400) Neutrophils (%) (Auto) 91 % (31-73) 64 % (31-73) Lymphocytes (%) (Auto) 8 % (24-48) 28 % (24-48) Monocytes (%) (Auto) 1 % (0-9) 7 % (0-9) Eosinophils (%) (Auto) 0 % (0-3) 1 % (0-3) Basophils (%) (Auto) 1 % (0-3) 1 % (0-3) Neutrophils # (Auto) 6.2 x10^3uL (1.8-7.7) 4.8 x10^3uL (1.8-7.7) Lymphocytes # (Auto) 0.5 x10^3/uL (1.0-4.8) 2.1 x10^3/uL (1.0-4.8) Monocytes # (Auto) 0.0 x10^3/uL (0.0-1.1) 0.5 x10^3/uL (0.0-1.1) Eosinophils # (Auto) 0.0 x10^3/uL (0.0-0.7) 0.0 x10^3/uL (0.0-0.7) Basophils # (Auto) 0.0 x10^3/uL (0.0-0.2) 0.0 x10^3/uL (0.0-0.2) Segmented Neutrophils % 91 % (35-66) Lymphocytes % 9 % (24-48) Platelet Estimate Adequate (ADEQUATE) Prothrombin Time 13.6 SEC (11.7-14.0) Prothromb Time International Ratio 1.1 (0.8-1.1) Activated Partial Thromboplast Time 29 SEC (24-38) Sodium Level 137 mmol/L (136-145) 137 mmol/L (136-145) Potassium Level 4.2 mmol/L (3.5-5.1) 3.9 mmol/L (3.5-5.1) Chloride Level 103 mmol/L (98-107) 102 mmol/L (98-107) Carbon Dioxide Level 30 mmol/L (21-32) 27 mmol/L (21-32) Anion Gap 4 (6-14) 8 (6-14) Blood Urea Nitrogen 13 mg/dL (8-26) 14 mg/dL (8-26) Creatinine 1.1 mg/dL (0.7-1.3) 1.0 mg/dL (0.7-1.3) Estimated GFR (Cockcroft-Gault) 73.4 81.9 BUN/Creatinine Ratio 12 (6-20) Glucose Level 132 mg/dL (70-99) 103 mg/dL (70-99) Calcium Level 9.0 mg/dL (8.5-10.1) 8.7 mg/dL (8.5-10.1) Total Bilirubin 0.2 mg/dL (0.2-1.0) Aspartate Amino Transf (AST/SGOT) 21 U/L (15-37) Alanine Aminotransferase (ALT/SGPT) 27 U/L (16-63) Alkaline Phosphatase 71 U/L (46-116) Total Protein 7.4 g/dL (6.4-8.2) Albumin 3.7 g/dL (3.4-5.0) Albumin/Globulin Ratio 1.0 (1.0-1.7) Urine Opiates Screen Neg (NEG) Urine Methadone Screen Neg (NEG) Urine Barbiturates Neg (NEG) Urine Phencyclidine Screen Neg (NEG) Urine Amphetamine/Methamphetamine Neg (NEG) Urine Benzodiazepines Screen Neg (NEG) Urine Cocaine Screen Neg (NEG) Urine Cannabinoids Screen Neg (NEG) Urine Ethyl Alcohol Neg (NEG) Brief Hospital Course Mr. Ferrara is a 41 old admit to 6th floor, facial change, parathesia sx of TIA, prior CVA, NEuro consult, cleared Cont plavix and sinus meds Cont statin Discharge Information Condition at Discharge: Improved Follow Up: Weeks Disposition/Orders: D/C to Home Scheduled Cetirizine Hcl (Cetirizine Hcl), 1 TAB PO DAILY, (Reported) Clopidogrel Bisulfate (Plavix), 1 TAB PO DAILY, (Reported) Levofloxacin (Levofloxacin), 1 TAB PO DAILY, (Reported) Prednisone (Prednisone), 1 TAB PO DAILY, (Reported) Simvastatin (Simvastatin), 1 TAB PO QHS, (Reported) Tizanidine Hcl (Tizanidine Hcl), 1 TAB PO BID, (Reported) Scheduled PRN Ciprofloxacin Hcl (Cipro), 1 TAB PO BID PRN for UTI Hydrocodone/Apap 5-325 (Bynum 5-325 Tablet), 1 TAB PO PRN Q6HRS PRN for PAIN Patient Instructions Patient Instructions smoking cessation weight loss f/u primary care AILYN JOHNSON MD Apr 15, 2017 13:31
[2017-04-15] MEDS ORDERED: SIMVASTATIN 40 MG TABLET. PO SCH (21:00)
== END 2017-04-15 14:10 | disposition home or self-care (01) ==
LOC: ER 16:50 → 6 SOUTH 20:21
PROVIDERS: ADMIT Internal Medicine; ATTEND Internal Medicine
DX: R53.1 Weakness (principal); R20.0 Anesthesia of skin; E78.5 Hyperlipidemia, unspecified; J32.9 Chronic sinusitis, unspecified; G43.909 Migraine, unspecified, not intractable, without status migrainosus; E78.00 Pure hypercholesterolemia, unspecified; E66.9 Obesity, unspecified; F17.210 Nicotine dependence, cigarettes, uncomplicated; Z79.899 Other long term (current) drug therapy; Z79.01 Long term (current) use of anticoagulants; Z87.09 Personal history of other diseases of the respiratory system; Z86.73 Personal history of transient ischemic attack (TIA), and cerebral infarction without residual deficits; Z82.49 Family history of ischemic heart disease and other diseases of the circulatory system
CPT/HCPCS: 36415; 70450; 70496; 70498; 70551; 80048; 80053; 82962; 85007; 85027; 85610; 85730; 93005; 97161; 97165; 99285; G0378; G0481; J7512; Q9967; G0379

== ENCOUNTER → 2018-12-07 | Outpatient (CLI) | payer BC ==
[~2018-12-07] MED LIST changes: +CETI10TA16 PO; +HYDR-3164 PO; -HYDR-971 PO; +LEVO500T8 PO; +PRED20TA PO; +SIMV40TA3 PO
--- NOTE | 2018-12-07 08:55 | KCIC ---
EXAM: Right shoulder, 4 views. HISTORY: Lifting injury. COMPARISON: None. FINDINGS: 4 views of the right shoulder obtained. There is no fracture, dislocation or subluxation. There is a tiny benign osseous excrescence along the superior acromion. IMPRESSION: No acute osseous finding. Electronically signed by: Roxy Hicks MD (12/07/2018 8:50 AM) [facility]
== END | disposition home or self-care (01) ==
LOC: KCIC 08:18
PROVIDERS: ATTEND Family Medicine
DX: M25.511 Pain in right shoulder (principal); X50.9XXA Other and unspecified overexertion or strenuous movements or postures, initial encounter; Y93.89 Activity, other specified; Y92.89 Other specified places as the place of occurrence of the external cause; Y99.8 Other external cause status
CPT/HCPCS: 73030